=== PATIENT | female | born 1990 | race Caucasian/White ===

== ENCOUNTER 2017-10-16 17:50 | Emergency (ER) | payer OTHER ==
[~2017-10-16] VITALS: Ht 157.5 cm; Wt 54.4 kg
--- NOTE | 2017-10-16 18:18 | ED GI/GU/ABDOMINAL COMPLAINT ---
History of Present Illness General Chief Complaint: General Adult Stated Complaint: PT POSSIBLE KIDNEY STONE Source: patient Exam Limitations: no limitations Vital Signs & Intake/Output Vital Signs & Intake/Output Vital Signs Date Time Temp Pulse Resp B/P B/P Pulse O2 O2 Flow FiO2 Mean Ox Delivery Rate 10/16 1952 98.0 77 16 114/72 99 Room Air 10/16 1755 97.7 78 18 111/72 96 Room Air Allergies Coded Allergies: NO KNOWN ALLERGIES (10/23/10) Reconcile Medications Meloxicam (Mobic) 15 MG TABLET 1 TAB PO DAILY PRN PAIN Ondansetron (Zofran Odt) 4 MG TAB.RAPDIS 1 TAB SL TID PRN NAUSEA Triage Note: 27 YO FEMALE TO TRIAGE FOR EVAL OF BILATERAL LOWER ABD PAIN AND LOWER BACK PAIN, STATES SHE IS CURRENTLY BEING TREATED FOR A UTI. STATES HER UTI S/S HAVE SUBSIDED. +NAUSEA, DENIES VOMTIING. Triage Nurses Notes Reviewed? yes ? n Is pt currently ? No Onset: Gradual Duration: day(s): Timing: recent history Quality/Severity: moderate Location: lower abdomen Radiation: left flank HPI: 27yo female presents to ED complaining of bilateral lower abdominal pain 2 days. Patient describes abdominal pain is worsening gradually, radiating towards her left flank. Patient states that earlier this week she was treated for UTI at an urgent care. Patient states that she was having hematuria that time which resolved. Patient states that she began Cipro and Pyridium medications as prescribed. Her abdominal pain symptoms started shortly after. Patient reports nausea. She denies vomiting, diarrhea, constipation, melena, fevers, chills, dysuria, changes in vaginal discharge. LMP was 3 weeks ago. (Jhoana Vance) Past History Travel History Traveled to [place] past 21 day No Medical History Any Pertinent Medical History? 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 No (Jhoana Vance) Review of Systems Review of Systems Constitutional: Reports: no symptoms. EENTM: Reports: no symptoms. Respiratory: Reports: no symptoms. Cardiovascular: Reports: no symptoms. GI: Reports: see HPI. Genitourinary: Reports: see HPI. Musculoskeletal: Reports: no symptoms. Skin: Reports: no symptoms. Neurological/Psychological: Reports: no symptoms. Hematologic/Endocrine: Reports: no symptoms. Immunologic/Allergic: Reports: no symptoms. All Other Systems: Reviewed and Negative (Kaitlynn KIRK,Jhoana Grey) Physical Exam Physical Exam General Appearance: well developed/nourished, no apparent distress, alert, awake Head: atraumatic, normal appearance Eyes: Bilateral: normal appearance. Ears, Nose, Throat, Mouth: hearing grossly normal Neck: normal inspection, supple, full range of motion Respiratory: normal breath sounds, no respiratory distress, lungs clear Cardiovascular: regular rate/rhythm Gastrointestinal: normal bowel sounds, soft, no organomegaly, LUQ, LLQ tenderness, no gaurding Back: normal inspection, normal range of motion, no CVA tenderness Extremities: normal range of motion Neurologic/Psych: awake, alert, oriented x 3 Skin: intact, normal color, warm/dry Core Measures ACS in differential dx? No Sepsis Present: No Sepsis Focused Exam Completed? No (Kaitlynn KIRK,Jhoana Grey) Progress Differential Diagnosis: appendicitis, bowel obstruction, diverticulitis, ectopic , gastritis, hepatitis, hernia, inflamm bowel dis, intrauterine , kidney stone, ovarian cyst, PID/cervicitis, peptic ulcer, PUD/GERD, SBO, threatened AB, UTI/pyelo Plan of Care: Orders Procedure Date/time Status URINE 10/16 1753 Complete URINALYSIS 10/16 1753 Complete LIPASE 10/16 1753 Complete COMPREHENSIVE METABOLIC PANEL 10/16 1753 Complete CBC WITHOUT DIFFERENTIAL 10/16 1753 Complete Current Medications Sig/Phil Start time Last Medication Dose Stop Time Status Admin Ketorolac 30 MG ONCE ONE 10/16 1800 CAN Tromethamine 10/16 1800 (Toradol) Ondansetron HCl 4 MG ONCE ONE 10/16 1800 CAN (Zofran) 10/16 1800 Laboratory Tests 10/16/171808: Anion Gap 13, Estimated GFR > 60, BUN/Creatinine Ratio 15.6, Glucose 86, Calcium 9.3, Total Bilirubin 0.7, AST 29, ALT 15, Alkaline Phosphatase 52, Total Protein 8.2, Albumin 4.8, Globulin 3.4, Albumin/Globulin Ratio 1.4, Lipase 179, CBC w Diff NO MAN DIFF REQ, RBC 4.77, MCV 92.7, MCH 30.5, MCHC 33.0, RDW 13.4, MPV 8.2 , Gran % 72.8, Lymphocytes % 17.0 L, Monocytes % 7.0, Eosinophils % 2.9, Basophils % 0.3, Absolute Granulocytes 6.6 H, Absolute Lymphocytes 1.6, Absolute Monocytes 0.6, Absolute Eosinophils 0.3, Absolute Basophils 0, Urine Color TONY, Urine Clarity CLEAR, Urine pH 6.5, Ur Specific Page <= 1.005, Urine Protein TRACE H, Urine Ketones NEG, Urine Nitrite POS H, Urine Bilirubin NEG, Urine Urobilinogen 2.0 H, Ur Leukocyte Esterase TRACE H, Ur Microscopic SEDIMENT EXAMINED, Ur Epithelial Cells MANY H, Urine Bacteria RARE H, Micro UA Comment MORE INFO: H, Urine Hemoglobin NEG, Urine Glucose 100 H, Urine Test NEGATIVE Patient's labs are within normal limits. No evidence of UTI based on her urinalysis today. Patient CT scan shows no acute abnormality. Patient was given a referral for gastroenterology. She'll follow-up with them regarding her abdominal symptoms. Patient started on piroxicam regarding her pain. She is in no acute distress, nontoxic appearing, sitting comfortably in stretcher while waiting results. Patient was given strict return precautions. The patient agrees with the plan of care. Diagnostic Imaging: Viewed by Me: CT Scan. Discussed w/RAD: CT Scan. Radiology Impression: PATIENT: HERSON SUMMERS PRESENT AGE: 27 PATIENT ACCOUNT NO: [id number] : 92 LOCATION: [facility] ORDERING PHYSICIAN: Les KIRK SERVICE DATE: 10/16/17 EXAM TYPE: CAT - CT ABD & PELVIS W/O IV CONTRAS EXAMINATION: CT ABDOMEN AND PELVIS WITHOUT CONTRAST CLINICAL INFORMATION: Kidney stones bilateral lower abdominal pain COMPARISON: None TECHNIQUE: Multidetector volumetric imaging was performed from the superior aspect of the liver through the pubic symphysis. Sagittal and coronal reformatted images were obtained on the technologist's workstation. DLP: 248 mGy-cm FINDINGS: LUNG BASES: The visualized lung bases are unremarkable. LIVER, GALLBLADDER, AND BILIARY TREE: The liver is normal in size, shape, and attenuation. No focal hepatic lesion or biliary ductal dilatation is present. The gallbladder is unremarkable with no evidence of radiopaque gallstones, gallbladder wall thickening, or obvious pericholecystic inflammatory changes. PANCREAS: Unremarkable. SPLEEN: Unremarkable. ADRENAL GLANDS: Unremarkable. KIDNEYS AND URETERS: The kidneys are normal in size, shape, and attenuation. No hydronephrosis, hydroureter, or calculi seen. No perinephric stranding. BLADDER: Unremarkable. GASTROINTESTINAL TRACT: Appendix not definitively visualized however no inflammatory changes in the right lower quadrant large bowel normal small bowel normal stomach normal ABDOMINAL WALL: No significant hernia is appreciated. LYMPH NODES: Normal. VASCULAR: Unremarkable. PELVIC VISCERA: Unremarkable. OSSEOUS STRUCTURES: Unremarkable. IMPRESSION: Normal CT scan of the abdomen and pelvis. No urinary tract calculi DICTATED BY: Timothy Tao MD DATE/TIME DICTATED:10/16/171840 CHILD PSYCHOLOGY TEACHER:PENNIE DATE/TIME TRANSCRIBED:10/16/171840 CONFIDENTIAL, DO NOT COPY WITHOUT APPROPRIATE AUTHORIZATION. <Electronically signed in Other Vendor System> SIGNED BY: Timothy Tao MD 10/16/171853 Initial ED EKG: none (Kaitlynn KIRK,Jhoana Grey) Departure Departure Disposition: HOME OR SELF CARE Condition: Stable Clinical Impression Primary Impression: Abdominal pain Qualifiers: Abdominal location: lower abdomen, unspecified Qualified Code: R10.30 - Lower abdominal pain, unspecified Referrals: Jose PANTOJA,Tobin King MD,Consuelo Oconnor (PCP/Family) Additional Instructions: Continue taking antibiotics as prescribed. Begin Zofran for nausea. You may also take meloxicam for pain, you may take this medication with Tylenol. Follow -up with gastroenterology referral. Return if feels worsening symptoms or other concerns. Please note that there might be incidental findings in your evaluation that are unrelated to the current emergency department visit. Please notify your primary care doctor about this emergency department visit in order to obtain and review all of the testing performed so that these incidental findings can be monitored as needed. If you had an x-ray performed, please understand that some fractures may not be seen on the initial set of x-rays. If your symptoms persist you might need a repeat set of x-rays to check for such a fracture. If you had a laceration evaluated, please understand that foreign bodies such as glass or wood may not be visible to the naked eye or on plain x-rays. If the wound becomes red, swollen, increasingly more painful or if there is any drainage from the wound, please have it reevaluated by a physician for the possibility of a retained foreign body. If you're unable to follow up as outlined in the discharge instructions please return to the emergency department. Thank you for choosing the [facility] Emergency Department for your care. It was a pleasure to serve you today. Departure Forms: Customer Survey General Discharge Information Prescriptions: Current Visit Scripts Ondansetron (Zofran Odt) 1 TAB SL TID PRN NAUSEA #10 TAB Meloxicam (Mobic) 1 TAB PO DAILY PRN PAIN #30 TAB (Kaitlynn KIRK,Jhoana Grey) PA/PLAY BACK OPERATOR Co-Sign Statement Statement: ED Attending supervision documentation- I saw and evaluated the patient. I have also reviewed all the pertinent lab results and diagnostic results. I agree with the findings and the plan of care as documented in the PA's/PLAY BACK OPERATOR's documentation. x I have reviewed the ED Record and agree with the PA's/PLAY BACK OPERATOR's documentation. [] Additions or exceptions (if any) to the PAs/PLAY BACK OPERATOR's note and plan are summarized below: [] (Siri PANTOJA,Yadiel)
[2017-10-16 18:26] LABS: ABSOLUTE BASOPHIL COUNT 0 /CUMM (0.0-0.2); ABSOLUTE EOSINOPHIL COUNT 0.3 /CUMM (0.0-0.7); ABSOLUTE GRANULOCYTE CT 6.6 /CUMM (1.4-6.5); ABSOLUTE LYMPH COUNT 1.6 /CUMM (1.2-3.4); ABSOLUTE MONOCYTE COUNT 0.6 /CUMM (0.10-0.60); BASOPHIL % 0.3 % (0.0-2.0); EOSINOPHIL % 2.9 % (0-5); HEMATOCRIT 44.2 % (37-47); MEAN CORPUSCULAR HGB 30.5 PG (27.0-31.0); MEAN CORPUSCULAR VOLUME 92.7 FL (81.0-99.0); MEAN PLATELET VOLUME 8.2 FL (7.4-10.4); PLATELET COUNT 292 /CUMM (130-400); RBC DISTRIBUTION WIDTH 13.4 % (11.5-14.5); RED BLOOD CELL CT 4.77 /CUMM (4.20-5.40); WHITE BLOOD CELL COUNT 9.1 /CUMM (4.8-10.8)
[2017-10-16 18:31] LABS: GRANULOCYTE % 72.8 % (42.2-75.2)
--- NOTE | 2017-10-16 18:54 | CT SCAN REPORT ---
EXAMINATION: CT ABDOMEN AND PELVIS WITHOUT CONTRAST CLINICAL INFORMATION: Kidney stones bilateral lower abdominal pain COMPARISON: None TECHNIQUE: Multidetector volumetric imaging was performed from the superior aspect of the liver through the pubic symphysis. Sagittal and coronal reformatted images were obtained on the technologist's workstation. DLP: 248 mGy-cm FINDINGS: LUNG BASES: The visualized lung bases are unremarkable. LIVER, GALLBLADDER, AND BILIARY TREE: The liver is normal in size, shape, and attenuation. No focal hepatic lesion or biliary ductal dilatation is present. The gallbladder is unremarkable with no evidence of radiopaque gallstones, gallbladder wall thickening, or obvious pericholecystic inflammatory changes. PANCREAS: Unremarkable. SPLEEN: Unremarkable. ADRENAL GLANDS: Unremarkable. KIDNEYS AND URETERS: The kidneys are normal in size, shape, and attenuation. No hydronephrosis, hydroureter, or calculi seen. No perinephric stranding. BLADDER: Unremarkable. GASTROINTESTINAL TRACT: Appendix not definitively visualized however no inflammatory changes in the right lower quadrant large bowel normal small bowel normal stomach normal ABDOMINAL WALL: No significant hernia is appreciated. LYMPH NODES: Normal. VASCULAR: Unremarkable. PELVIC VISCERA: Unremarkable. OSSEOUS STRUCTURES: Unremarkable. IMPRESSION: Normal CT scan of the abdomen and pelvis. No urinary tract calculi
[2017-10-16] MEDS ORDERED: MOBIC15 M1 PO (19:38)
[2017-10-16] MEDS ORDERED: ZOFRAN ODT4 M1 SL (19:38)
[2017-10-16 19:53] VITALS: BP 114/72
== END 2017-10-16 20:00 ==
LOC: ERH 17:50
PROVIDERS: Physician Assistant Medical
DX: R10.32 Left lower quadrant pain (principal)
CPT/HCPCS: 74176; 81001; 81025; 96374; 96375; J1885; J2405